=== PATIENT | male | born 1995 | race Caucasian/White ===

== ENCOUNTER 2018-01-05 14:43 | Emergency (ER) | payer SELFPAY ==
[2018-01-05 15:18] VITALS: BP 136/68
--- NOTE | 2018-01-05 15:26 | UC ---
General HPI - HPI Summary HPI Summary: redness to R upper arm x 3 days with worsening. "I poked it with a pin because I thought it was a pimple". denies hx MRSA, DM and fever. - History of Current Complaint Chief Complaint: LORIkin Stated Complaint: RIGHT ARM PAIN Time Seen by Provider: 01/05/18 15:12 Hx Obtained From: Patient Onset/Duration: Gradual Onset Timing: Constant Pain Intensity: 5 Aggravating: nothing Alleviating: nothing Associated Signs & Symptoms: Negative: Fever - Allergy/Home Medications Allergies/Adverse Reactions: Allergies Allergy/AdvReac Type Severity Reaction Status Date / Time azithromycin [From Zithromax] Allergy Swelling Verified 01/05/18 15:19 Of Face,Lips,& Throat Penicillins Allergy Swelling Verified 01/05/18 15:19 Of Face,Lips,& Throat Home Medications: Home Medications Divalproex ER TAB(*) [Depakote ER TAB(*)] 2 tab BID 01/05/18 [History Confirmed 01/05/18] PMH/Surg Hx/FS Hx/Imm Hx Neurological History: Seizures - Surgical History Surgical History: None - Family History Known Family History: Positive: None - Social History Occupation: Employed Full-time Lives: With Family Alcohol Use: Occasionally Substance Use Type: None Smoking Status (MU): Light Every Day Tobacco Smoker Type: Cigarettes Household Exposure Type: Cigarettes - Immunization History Most Recent Tetanus Shot: UTD Vaccination Up to Date: Yes Review of Systems Constitutional: Negative Skin: Rash Eyes: Negative ENT: Negative Respiratory: Negative Cardiovascular: Negative Gastrointestinal: Negative Genitourinary: Negative Motor: Negative Neurovascular: Negative Musculoskeletal: Negative Neurological: Negative Psychological: Negative Is Patient Immunocompromised?: No All Other Systems Reviewed And Are Negative: Yes Physical Exam Triage Information Reviewed: Yes Appearance: Well-Appearing Vital Signs: Initial Vital Signs Temp 98.7 F 01/05/18 15:14 Pulse 102 01/05/18 15:14 Resp 15 01/05/18 15:14 BP 136/68 01/05/18 15:14 Pulse Ox 99 01/05/18 15:14 Eyes: Positive: Conjunctiva Clear ENT: Positive: Normal ENT inspection Neck: Positive: Supple, Nontender, No Lymphadenopathy Respiratory: Positive: Lungs clear, Normal breath sounds Cardiovascular: Positive: RRR, No Murmur Abdomen Description: Positive: Nontender, No Organomegaly, Soft Bowel Sounds: Positive: Present Musculoskeletal: Positive: ROM Intact Neurological: Positive: Alert Psychological: Positive: Age Appropriate Behavior Skin Exam: Normal, Other - RUE: lateral upper arm has an area of eythema with a small scab to the upper border. the site is warm, tender and the center has some mild induration. there is no streaking and no fluctuance. gentle pressure to the site expressed no puss. s/v/m is intact and no streaking or adenopathy. Course/Dx - Course Course Of Treatment: the site is not fluctuant thus no attempt to aspirate or I& D. pt advised may form abscess and recheck immediately for any woraening. will cover with Bactrim for possible mrsa. need for close f/u stressed. - Differential Dx - Multi-Symptom Provider Diagnoses: cellulitis R upper arm Discharge - Sign-Out/Discharge Documenting (check all that apply): Discharge/Admit/Transfer - Discharge Plan Condition: Stable Disposition: HOME Prescriptions: Sulfamethox/Trimethoprim DS* [Bactrim DS 800/160 TAB*] 1 tab PO BID #20 tab Patient Education Materials: Cellulitis (DC) Referrals: JENNY Lam [Primary Care Provider] - Additional Instructions: FOLLOW UP FOR A RECHECK IN 1-2 DAYS OR SOONER IF WORSE - Billing Disposition and Condition Condition: STABLE Disposition: HOME
== END 2018-01-05 15:32 | disposition home or self-care (01) ==
LOC: UCCORT 14:43
DX: L03.113 Cellulitis of right upper limb (principal); Z88.1 Allergy status to other antibiotic agents; Z88.0 Allergy status to penicillin; R56.9 Unspecified convulsions; F17.210 Nicotine dependence, cigarettes, uncomplicated
CPT/HCPCS: 99212; G0463

== ENCOUNTER 2019-10-18 13:59 | Emergency (ER) | payer SELFPAY ==
[2019-10-18 14:17] VITALS: BP 129/88
--- NOTE | 2019-10-18 14:36 | UC ---
Nausea/Vomiting/Diarrhea HPI - HPI Summary HPI Summary: 24yo male presenting with vomiting "3-4 times daily for the last 2 1/2 week." States he throws up when he attempts to eat solid foods but also at random times. States he can drink fluids without issue. States he has intermittent left abdominal pains that come and go every couple hours. Denies any exacerbating or alleviating factors. Denies abnormal bowel movements, stating they are normal and solid despite not being able to consume solid food. Denies urinary symptoms. Denies fever and chills. Denies nausea. Denies taking anything for symptom relief "because I don't believe in that stuff." States he waited to be seen for so long because he is stubborn and his girlfriend made him come today. States he threw up 5 times today. Denies blood in the vomit. Describes vomiting is white and foamy most the time. States he was seen for "abdominal issues" approximately 3 years ago in the hospital but "forgets he was diagnosed if anything." Denies history of acid reflux, ulcerative colitis, Crohn's, celiac disease, diverticulitis, and other GI disorders. Denies any episodes like this in the past. States he drinks occasionally but has not had a problem with alcohol or had a drink in the last 2 weeks. She quit smoking cigarettes 2 years ago. Denies any other substance use. - History of Current Complaint Chief Complaint: UCGI Stated Complaint: VOMITTING Hx Obtained From: Patient Pain Intensity: 0 - Allergies/Home Medications Allergies/Adverse Reactions: Allergies Allergy/AdvReac Type Severity Reaction Status Date / Time azithromycin [From Zithromax] Allergy Swelling Verified 10/18/19 14:15 Of Face,Lips,& Throat Penicillins Allergy Swelling Verified 10/18/19 14:15 Of Face,Lips,& Throat Home Medications: Home Medications NK [No Home Medications Reported] 10/18/19 [History Confirmed 10/18/19] PMH/Surg Hx/FS Hx/Imm Hx - Surgical History Surgical History: None - Family History Known Family History: Positive: None - Social History Alcohol Use: Occasionally Substance Use Type: None Smoking Status (MU): Former Smoker Type: Smokeless Tobacco Amount Used/How Often: 1 can/2 weeks Household Exposure Type: Cigarettes - Immunization History Most Recent Tetanus Shot: UTD Vaccination Up to Date: Yes Review of Systems All Other Systems Reviewed And Are Negative: Yes Constitutional: Positive: Negative ENT: Positive: Negative Respiratory: Positive: Negative Cardiovascular: Positive: Negative Gastrointestinal: Positive: Abdominal Pain - left side, Vomiting. Negative: Diarrhea, Nausea Genitourinary: Positive: Negative Musculoskeletal: Positive: Negative Neurological/Mental Status: Positive: Negative Physical Exam - Summary Physical Exam Summary: Vital Signs Reviewed: Yes A+Ox3, no distress, well-appearing Eyes: Conjunctiva Clear ENT: Hearing grossly normal, TM x 2 clear, moist, uvula midline, no exudate, no erythema Neck: Positive: Supple Respiratory: Positive: No respiratory distress, No accessory muscle use + CTA throughout no w/r Cardiovascular: RRR nl s1, s2 no m/r Abd: soft + BS hypoactive throughout, +LUQ TTP, no guarding Musculoskeletal Exam: HUNTLEY x 4 without difficulty Neurological: Positive: Alert Psychological: Positive: age appropriate behavior Skin: Positive: no rash, no ecchymosis Vital Signs: Initial Vital Signs Temp 98.1 F 10/18/19 14:13 Pulse 100 10/18/19 14:13 Resp 16 10/18/19 14:13 BP 129/88 10/18/19 14:13 Pulse Ox 98 10/18/19 14:13 Naus/Vom/Diarrhea Course/Dx - Course Course Of Treatment: UA negative. I discussed with patient that the most appropriate place for him is the emergency room given his history of emesis 3-4x daily for 2 weeks and tender abdomen. I informed him that he needs further evaluation which may include lab work and imaging. Patient declined transfer via ambulance. Patient voiced understanding and agreed to have his girlfriend drive him to [place] ED upon departure from the clinic. Patient VS stable and in no pain distress upon departure. - Differential Dx/Diagnosis Provider Diagnosis: Vomiting without nausea Condition At Discharge: Stable Discharge ED - Sign-Out/Discharge Documenting (check all that apply): Patient Departure All imaging exams completed and their final reports reviewed: No Studies - Discharge Plan Condition: Stable Disposition: HOME-RECOMMEND TO ED Patient Education Materials: Acute Nausea and Vomiting (ED), Abdominal Pain (ED ) Referrals: No Primary Care Phys,NOPCP [Primary Care Provider] - Additional Instructions: The provider that evaluated you today thinks that you need additional testing that can be completed the emergency department. It is recommended that you go directly to emergency department for further evaluation. This evaluation included blood work or imaging. This testing will be directed and decided by the provider that evaluates you at the emergency department. If pain becomes worse, you feel lightheaded, you have uncontrolled vomiting, or you have any other concerns while you are being driven to emergency department it is recommended to pullover and contact 911. - Billing Disposition and Condition Condition: STABLE Disposition: Home-Recommend to ED - Attestation Statements Provider Attestation: This patient was not seen by me. I was available for consult. Chart reviewed. HETAL
== END 2019-10-18 15:23 | disposition home health service (06) ==
LOC: UCCORT 13:59
DX: R11.10 Vomiting, unspecified (principal); R10.9 Unspecified abdominal pain; Z87.891 Personal history of nicotine dependence; Z88.0 Allergy status to penicillin; Z88.1 Allergy status to other antibiotic agents
CPT/HCPCS: 81003; 99212; G0463